=== PATIENT | female | born 1980 | race Two or more races ===

== ENCOUNTER 2022-02-17 15:31 | Emergency (ER) | payer MEDICAID ==
[~2022-02-17] VITALS: Ht 157.5 cm; Wt 68.0 kg
[2022-02-17] MEDS ORDERED: LORazepam 2MG/ML-1ML VIAL IV ONE (16:30)
[2022-02-17 16:58] LABS: Basophils # (auto) 0 10 ^3/uL (0-0.2); Basophils % (auto) 0.6 % (0.0-2.0); Eosinophils # (auto) 0 10 ^3/uL (0-0.8); Eosinophils % (auto) 0.7 % (0.0-7.0); Hematocrit 39.3 % (36.0-46.0); Hemoglobin 12.8 g/dL (12.2-16.2); Lymphocytes # (auto) 0.9 10 ^3/uL (0.4-5.4); Lymphocytes % (auto) 30.5 % (10.0-50.0); Mean Corpuscular Hemoglobin 27.6 pg (28.0-32.0); Mean Corpuscular Hgb Conc. 32.6 g/dL (32.0-36.0); Mean Corpuscular Volume 84.8 fL (80.0-100.0); Monocytes # (auto) 0.4 10 ^3/uL (0-1.3); Monocytes % (auto) 12.3 % (0.0-12.0); Neutrophils # (auto) 1.7 10 ^3/uL (1.6-8.6); Neutrophils % (auto) 55.9 % (37.0-80.0); Nucleated Red Blood Cells % 0.1 %; Red Blood Cells 4.64 10^6/uL (4.0-5.20); White Blood Cell 3.1 10^3/uL (4.4-10.8)
[2022-02-17 17:14] LABS: BUN/Creatinine Ratio 13.6; Potassium 3.7 mmol/L (3.5-5.1)
[2022-02-17 17:17] LABS: Bilirubin, Total 0.5 mg/dL (0.2-1.0); Total Protein 7.7 g/dL (6.4-8.2)
[2022-02-17] MEDS ORDERED: KEP500T PO (17:58)
[2022-02-17 18:00] VITALS: BP 116/82
== END 2022-02-17 19:06 | disposition home or self-care (01) ==
LOC: ER 15:31
DX: R56.9 Unspecified convulsions (principal); Z86.73 Personal history of transient ischemic attack (TIA), and cerebral infarction without residual deficits; Z98.51 Tubal ligation status; Z85.3 Personal history of malignant neoplasm of breast
CPT/HCPCS: 36415; 80053; 85025; 96365; 96375; 99284; J1953; J2060; J7060